=== PATIENT | female | born 1990 | race Caucasian/White ===

== ENCOUNTER 2020-07-26 09:36 | Inpatient (IN) ==
[2020-07-26] MEDS ORDERED: ceFAZolin 2,000 MG in PREMIX 1 EACH IV ONE (10:05)
[2020-07-26] MEDS ORDERED: FAMOTIDINE 20 MG/2 ML VIAL IV ONE (10:05)
[2020-07-26] MEDS: LACTATED RINGERS 1,000 ML IV SCH ×2 (10:05→12:12)
[2020-07-26] MEDS ORDERED: CITRIC ACID/SODIUM CITRATE 30 ML UDCUP PO ONE (10:05)
[2020-07-26 10:28] LABS: Basophils % 0.2 % (0.0-0.8); Eosinophils # 0.1 10*3/uL (0.0-0.87); Eosinophils % 0.6 % (0.00-10.9); Hematocrit 36.7 VOL% (35.7-47.0); Hemoglobin 11.9 GM/DL (12.0-16.0); Immature Granulocytes % 0.8 %; Immature Granulocytes Absolute 0.07 #; Lymphocytes % 21.4 % (21.3-54.2); Mean Corpuscular HGB Conc 32.4 GM/DL (32-36); Mean Corpuscular Volume 89.5 FL (87-102); Monocytes % 5.2 % (1.7-12.7); Neutrophils % 71.8 % (38.7-73.9); Platelet Count 310 T/CUMM (130-400); Red Cell Distribution Width 14.1 % (9.3-17.3); White Blood Count 9.3 T/CUMM (4-12)
[2020-07-26 10:49] LABS: Albumin 2.5 G/DL (3.4-5.0); Bilirubin,Total 0.4 MG/DL (0.2-1.0); Calcium 8.6 MG/DL (8.5-10.1); Osmolality,Calculated 270.7 MOS/KG (273-304); Total Protein 6.6 G/DL (6.4-8.3)
[2020-07-26] MEDS ORDERED: TRANEXAMIC ACID 1,000 MG/10 ML VIAL ONE (13:27)
[2020-07-26] MEDS ORDERED: OXYTOCIN/LR 30 UNIT/1,000 ML BAG IV ONE (13:27)
[2020-07-26] MEDS ORDERED: miSOPROStoL 200 MCG TABLET ONE (13:27)
[2020-07-26] MEDS ORDERED: OXYTOCIN 10 UNIT/ML VIAL IM ONE (13:27)
[2020-07-26] MEDS ORDERED: METHYLERGONOVINE 0.2 MG/1 ML AMP ONE (13:28)
[2020-07-26] MEDS ORDERED: CARBOPROST TROMETHAMINE 250 MCG/ML AMP IM ONE (13:28)
[2020-07-26] MEDS ORDERED: OXYTOCIN 10 UNIT/ML VIAL ONE (13:32)
[2020-07-26] MEDS ORDERED: NEOSTIGMINE 10 MG/10 ML VIAL ONE (13:35)
[2020-07-26] MEDS ORDERED: ONDANSETRON 4 MG/2 ML VIAL ONE (13:35)
[2020-07-26] MEDS ORDERED: fentaNYL 100 MCG/2 ML VIAL ONE (13:35)
[2020-07-26] MEDS ORDERED: MORPHINE 10 MG/10 ML VIAL ONE (13:36)
[2020-07-26] MEDS ORDERED: OXYTOCIN/LR 20 UNIT/1,000 ML BAG IV ONE ×3 (13:37→14:44)
[2020-07-26] MEDS ORDERED: PHENYLEPHRINE 1 MG/10 ML SYRINGE IV ONE (14:34)
[2020-07-26] MEDS ORDERED: BUPIVACAINE SPINAL 0.75% 2 ML AMP SPINAL ONE (14:34)
[2020-07-26] MEDS ORDERED: ROPIVACAINE 0.5% 30 ML VIAL ONE (14:34)
[2020-07-26 14:39] LABS: Cord Arterial Blood HCO3 22.7 MMOL/L
[2020-07-26 14:40] LABS: Cord Venous Blood HCO3 23.5 MMOL/L; Cord Venous Blood PO2 27.8 MMHG
[2020-07-26 14:43] LABS: Bilirubin,Urine Negative (Negative); Blood, Urine Negative (Negative); Glucose,Urine (UA) Negative (Negative); Ketones,Urine 5 mg/dL (Negative); Mucus,Urine Occasional /LPF (Occasional); Nitrite,Urine Negative (Negative); Protein,Urine Negative; RBC,Urine <1 /HPF (0-4); Squamous Epithelial Cell,Urine Occasional /HPF (0-10); Urine Appearance CLEAR (Clear); Urine Color Yellow (Yellow); Urine Specific Gravity 1.009 (1.001-1.035); Urine Urobilinogen < 2.0 EU/DL (0.2-1.0); WBC,Urine 1 /HPF (0-6)
[2020-07-26] MEDS ORDERED: ACETAMINOPHEN 325 MG TABLET PO PRN (14:44)
[2020-07-26] MEDS ORDERED: RHO(D) IMMUNE GLOBULIN 300 MCG SYRINGE IM ONE (14:44)
[2020-07-26] MEDS ORDERED: SIMETHICONE CHEW 80 MG TABLET PO PRN (14:44)
[2020-07-26] MEDS ORDERED: ONDANSETRON 4 MG/2 ML VIAL IV PRN (14:44)
[2020-07-26] MEDS ORDERED: MAGNESIUM HYDROXIDE SUSP 30 ML UDCUP PO PRN (14:44)
[2020-07-26] MEDS ORDERED: LACTATED RINGERS 1,000 ML IV SCH (15:00)
[2020-07-26] MEDS: ceFAZolin 1,000 MG in SYRINGE 1 EACH IV SCH (22:00)
[2020-07-26 23:09] LABS: Basophils % 0.2 % (0.0-0.8); Eosinophils % 0.2 % (0.00-10.9); Hematocrit 30.7 VOL% (35.7-47.0); Hemoglobin 10.2 GM/DL (12.0-16.0); Immature Granulocytes % 0.5 %; Immature Granulocytes Absolute 0.07 #; Lymphocytes % 14.9 % (21.3-54.2); Mean Corpuscular HGB Conc 33.2 GM/DL (32-36); Monocytes % 5.4 % (1.7-12.7); Neutrophils % 78.8 % (38.7-73.9); Platelet Count 242 T/CUMM (130-400); Red Blood Count 3.49 MC/CUMM (3.8-5.5); White Blood Count 13.3 T/CUMM (4-12)
[2020-07-26] MEDS: DOCUSATE SODIUM 100 MG CAPSULE PO SCH (23:51)
[2020-07-27] MEDS: ceFAZolin 1,000 MG in SYRINGE 1 EACH IV SCH (06:00)
[2020-07-27 07:06] LABS: Basophils % 0.3 % (0.0-0.8); Eosinophils % 0.3 % (0.00-10.9); Hemoglobin 10.7 GM/DL (12.0-16.0); Immature Granulocytes % 0.5 %; Immature Granulocytes Absolute 0.06 #; Lymphocytes # 1.8 10*3/uL (1.4-4.0); Lymphocytes % 15.2 % (21.3-54.2); Mean Corpuscular HGB Conc 33.4 GM/DL (32-36); Mean Corpuscular Volume 88.2 FL (87-102); Mean Platelet Volume 10.8 FL (9.6-12.0); Monocytes % 5.1 % (1.7-12.7); Neutrophils % 78.6 % (38.7-73.9); Platelet Count 267 T/CUMM (130-400); Red Blood Count 3.63 MC/CUMM (3.8-5.5); Red Cell Distribution Width 14.2 % (9.3-17.3)
[2020-07-27] MEDS: MULTIVITAMIN (PRENATAL) TABLET PO SCH (08:51)
[2020-07-27] MEDS: DOCUSATE SODIUM 100 MG CAPSULE PO SCH ×2 (08:51→21:20)
[2020-07-27] MEDS: IBUPROFEN 800 MG TABLET PO PRN ×2 (08:51→17:42)
[2020-07-27] MEDS ORDERED: METOCLOPRAMIDE 10 MG TABLET PO PRN (14:15)
[2020-07-28 07:43] VITALS: BP 130/69
[2020-07-28] MEDS: DOCUSATE SODIUM 100 MG CAPSULE PO SCH (08:58)
[2020-07-28] MEDS: IBUPROFEN 800 MG TABLET PO PRN (09:00)
[2020-07-28] MEDS ORDERED: INFLUENZA VIRUS VACCINE 0.5 ML SYRINGE IM ONE ×2 (10:09→11:00)
[2020-07-28] MEDS: MULTIVITAMIN (PRENATAL) TABLET PO SCH (10:50)
== END 2020-07-28 11:15 | disposition home or self-care (01) | DRG 785 ==
LOC: N.LD 09:36 → N.OB 21:00
PROVIDERS: ADMIT Obstetrics & Gynecology; ATTEND Obstetrics & Gynecology